=== PATIENT | female | born 1955 | race Hispanic/Latino ===

== ENCOUNTER 2018-02-19 11:57 | Emergency (ER) | payer MEDICAID, MEDICARE ==
[2018-02-19 11:58] VITALS: PULSE 88
[2018-02-19 12:01] VITALS: BMI 45.7
[2018-02-19 12:05] VITALS: BP 137/88; PULSE 84; RESP 18; TEMP 97.4; O2SAT 97
[2018-02-19 13:06] LABS: BASO # 0.1 K/uL (0.0-0.2); BASO % 1.2 % (0.0-2.0); EOS # 0.1 K/uL (0.0-0.7); EOS % 1.5 % (0.0-4.0); HEMOGLOBIN 13.8 g/dL (11.0-16.0); LYMPH # 1.2 K/uL (1.0-4.3); LYMPH % 20.6 % (20.0-40.0); MEAN CORPUSCULAR HEMOGLOBIN 30.1 pg (27.0-31.0); MEAN CORPUSCULAR HGB CONC 33.8 g/dL (33.0-37.0); MONO # 0.8 K/uL (0.0-0.8); MONO % 13.9 % (0.0-10.0); NEUT # 3.5 K/uL (1.8-7.0); NEUT % 62.8 % (50.0-75.0); RBC 4.57 Mil/uL (3.80-5.20); RED CELL DISTRIBUTION WIDTH 14.7 % (11.5-14.5); WHITE BLOOD COUNT 5.6 K/uL (4.8-10.8)
--- NOTE | 2018-02-19 13:45 | C.PDOC ---
History Of Present Illness 62-year-old female, PMH includes Hypertension and vascular disease, presents to the emergency department with complaint of right leg pain. Patient states she has varicose veins to both legs, but her right lower leg looks worse. States she is pending an appointment with vascular surgeon on 03/01. Pt states she does not take any pain killers, and does not like to wear the compression stockings. Pain is described as a burning sensation. She denies any numbness/weakness, fever, nausea/vomiting, or any other associated symptoms. Time Seen by Provider: 02/19/18 12:20 Chief Complaint (Nursing): Lower Extremity Problem/Injury History Per: Patient History/Exam Limitations: no limitations Onset/Duration Of Symptoms: Days Current Symptoms Are (Timing): Still Present Severity: Moderate Past Medical History Reviewed: Historical Data, Nursing Documentation, Vital Signs Vital Signs: Last Vital Signs Temp 97.4 F L 02/19/18 12:01 Pulse 84 02/19/18 12:01 Resp 18 02/19/18 12:01 BP 137/88 02/19/18 12:01 Pulse Ox 97 02/19/18 15:04 - Medical History PMH: HTN - [facility] Procedures ULTRASONOGRAPHY OF RIGHT AND LEFT HEART, TRANSESOPHAGEAL (09/25/15) Family History: States: Unknown Family Hx - Social History Hx Alcohol Use: No Hx Substance Use: No - Immunization History Hx Tetanus Toxoid Vaccination: No Hx Influenza Vaccination: No Hx Pneumococcal Vaccination: No Review Of Systems Constitutional: Negative for: Fever, Malaise Cardiovascular: Negative for: Chest Pain, Palpitations Respiratory: Negative for: Shortness of Breath Gastrointestinal: Negative for: Nausea, Vomiting Musculoskeletal: Positive for: Leg Pain Neurological: Negative for: Weakness, Numbness Physical Exam - Physical Exam Appears: Non-toxic, No Acute Distress, Unkempt Skin: Warm, Dry, No Rash, Other (varicosities bilateral lower extremities.) Head: Atraumatic Eye(s): bilateral: Normal Inspection Nose: Normal Oral Mucosa: Moist Lips: Normal Appearing Neck: Normal ROM Chest: Symmetrical Cardiovascular: Rhythm Regular, No Murmur Respiratory: Normal Breath Sounds, No Accessory Muscle Use Extremity: Normal ROM, Tenderness, No Pedal Edema, No Calf Tenderness, Capillary Refill (<2 seconds), No Deformity, Other (righ lower extremity: chronic venous stasis changes with superficial 4x5cm wound to posterior aspect. No discharge. (+)mild surrounding erythema.) Pulses: Left Dorsalis Pedis: Normal, Right Dorsalis Pedis: Normal Neurological/Psych: Oriented x3, Normal Speech ED Course And Treatment - Laboratory Results Result Diagrams: 02/19/18 13:02 O2 Sat by Pulse Oximetry: 97 Pulse Ox Interpretation: Normal (RA) Medical Decision Making Medical Decision Making: impression: leg pain, varicose veins, Plan: * Bloodwork * Keflex Patient insists on seeing vascular doctor in hospital. The patient has pedal pulses and no emergent need to see vascular at this time. Patient given Keflex and advised to elevate extremity and follow up with her doctor scheduled for next week. Disposition Counseled Patient/Family Regarding: Diagnosis, Need For Followup, Rx Given - Disposition Referrals: Pietro Ribeiro Jr., MD [Staff Provider] - Disposition: HOME/ ROUTINE Disposition Time: 15:04 Condition: STABLE Additional Instructions: Follow up with vascular surgeon Prescriptions: Cephalexin [cephalexin] 500 mg PO Q12 #14 cap Ibuprofen [Motrin] 600 mg PO Q8 #30 tab Instructions: Peripheral Vascular (Arterial) Disease (DC) Forms: [employer] ([place]ian) - Clinical Impression Clinical Impression: Leg pain, Varicose vein of leg - Scribe Statement The provider has reviewed the documentation as recorded by the Scribe (Sixto Jackson) All medical record entries made by the Scribe were at my direction and personally dictated by me. I have reviewed the chart and agree that the record accurately reflects my personal performance of the history, physical exam, medical decision making, and the department course for this patient. I have also personally directed, reviewed, and agree with the discharge instructions and disposition.
== END 2018-02-19 15:34 | disposition home or self-care (01) ==
LOC: C.ER 11:57
DX: I83.91 Asymptomatic varicose veins of right lower extremity (principal); M79.604 Pain in right leg; I10 Essential (primary) hypertension